=== PATIENT | female | born 1995 | race Caucasian/White ===

== ENCOUNTER 2021-01-21 09:31 | Emergency (ER) | payer OTHER, MEDICAID ==
[~2021-01-21] VITALS: Ht 157.5 cm; Wt 59.0 kg
[2021-01-21 10:33] LABS: URINE BILIRUBIN NEGATIVE (Negative); URINE BLOOD 2+ (Negative); URINE CLARITY CLEAR; URINE COLOR YELLOW; URINE GLUCOSE-RANDOM NEGATIVE (Negative); URINE KETONES NEGATIVE (Negative); URINE NITRITE-REFLEX NEGATIVE (Negative); URINE PROTEIN 1+ (Negative); URINE SPECIFIC GRAVITY 1.025 (1.005-1.030)
[2021-01-21 10:35] LABS: URINE LEUKOCYTES-REFLEX 2+ (Negative)
[2021-01-21 10:44] LABS: BACTERIA-REFLEX 1-9 Few /HPF (None Seen); CASTS None Seen /LPF (None Seen); CRYSTALS None Seen /LPF (None Seen); MUCUS 0-3 Light strn/LPF (None Seen); SQUAMOUS 0-3 Few /LPF (0-3); URINE WBC-REFLEX >25 Many /HPF (0-5)
[2021-01-21 10:50] LABS: ABSOLUTE BASOPHILS 0.1 thou/uL (0.0-0.2); ABSOLUTE LYMPHOCYTES 1.2 thou/uL (0.8-5.3); ABSOLUTE MONOCYTES 0.5 thou/uL (0.0-1.2); ABSOLUTE NEUTROPHILS 5.5 thou/uL (1.6-8.1); BASOPHILS 1.2 %; EOSINOPHILS 0.5 %; HEMOGLOBIN 9.2 gm/dL (12.0-15.0); LYMPHOCYTES 16.7 %; MCH 21.2 pg (26.0-34.0); MCHC 30.8 g/dL (28.0-37.0); MCV 68.8 fL (80.0-100.0); MONOCYTES 6.5 %; MPV 6.9 fl. (7.2-11.1); NUCLEATED RBCS 0 /100WBC; PLATELET COUNT* 350 thou/uL (150-400); POLYS 75.1 %; RBC 4.36 mil/uL (4.20-5.00); RDW-CV 22.3 % (10.5-14.5); WBC 7.3 thou/uL (4.0-11.0)
[2021-01-21 11:15] LABS: ANISOCYTOSIS 2+; HYPOCHROMASIA 2+; MICROCYTES 3+; PLATELET ESTIMATE ADEQUATE
[2021-01-21 11:16] LABS: OVALOCYTES 1+
[2021-01-21] MEDS ORDERED: KEFLEX500 M1 PO (11:21)
[2021-01-21 11:30] VITALS: BP 118/87
== END 2021-01-21 11:31 | disposition home or self-care (01) ==
LOC: M.ERS 09:31
PROVIDERS: Nurse Practitioner
DX: R42 Dizziness and giddiness (principal); Z98.51 Tubal ligation status; Z98.890 Other specified postprocedural states; Z86.2 Personal history of diseases of the blood and blood-forming organs and certain disorders involving the immune mechanism